=== PATIENT | male | born 1985 | race Caucasian/White ===

== ENCOUNTER 2019-07-10 17:13 | Emergency (ER) | payer SELFPAY ==
[2019-07-10 17:22] VITALS: BP 112/79
[2019-07-10] MEDS: Lidocaine 1% 5ml 10 MG/ML VIAL IJ ONE ×2 (17:32→17:53)
[2019-07-10] MEDS: DIPH,PERTUSS(ACELL),TET VAC/PF 0.5 ML DISP.SYRIN IM ONE (18:07)
--- NOTE | 2019-07-10 18:10 | ED Physician Documentation ---
General Adult - HISTORIAN Historian: patient - HPI Stated Complaint: left thumb lac Chief Complaint: Laceration/Recheck/Suture Additional Information: Patient presents to ED with 3 cm laceration to left thumb. Patient states he c ut his left thumb accidentally while trying to cut a cable tie off of his daughters hair brush. The knife slipped a lacerated the dorsal side of his left thumb. Patient last tetanus was about 6 years. Onset: minutes (20) Timing: still present Severity: moderate - ROS CONST: no problems EYES/ENT: none CVS/RESP: none GI/: none MS/SKIN/LYMPH: none NEURO/PSYCH: denies: headache - PAST HX Past History: none Other History: none Surgeries/Procedures: none Allergies/Adverse Reactions: Allergies Allergy/AdvReac Type Severity Reaction Status Date / Time No Known Allergies Allergy Verified 07/10/19 17:22 Home Medications: Ambulatory Orders Medication Instructions Recorded NK 07/10/19 - SOCIAL HX Smoking History: cigarettes, greater than 1 pack/day Alcohol Use: none Drug Use: none - FAMILY HX Family History: No - VITAL SIGNS Vital Signs: Vital Signs Temp Pulse Resp BP Pulse Ox 98.7 F 98 H 19 112/79 100 07/10/19 17:18 07/10/19 17:18 07/10/19 17:18 07/10/19 17:18 07/10/19 17:18 - REVIEWED ASSESSMENTS Nursing Assessment Reviewed: Yes Vitals Reviewed: Yes Procedures Wound Location: upper extremity (left thumb) Wound's Depth, Shape: superficial, linear Wound Explored: clean Irrigated w/ Saline (ccs): 250 Betadine Prep?: Yes Anesthesia: 1% Lidocaine Volume of Anesthetic: 10 ml Wound Debrided: minimal Wound Repaired With: sutures Suture Size/Type: 4:0 Number of Sutures: 8 Sterile Dressing Applied?: Yes Splint Applied?: No Sling Applied?: No ED Results Lab/Radiology - Orders Orders: ED Orders Category Date Time Status Cleanse with NS and Chlorhexid 1T Care 07/10/19 17:23 Active Diph,Pertuss(Acell),Tet Vac/Pf [Adacel] Med 07/10/19 17:22 Discontinued 0.5 ml IM .ONCE ONE Lidocaine 1% 5ml [Xylocaine] Med 07/10/19 17:22 Discontinued 50 mg IJ NOW ONE Lidocaine 1% 5ml [Xylocaine] Med 07/10/19 17:38 Discontinued 50 mg IJ NOW ONE General Adult Physical Exam - PHYSICAL EXAM GENERAL APPEARANCE: no distress EENT: [place] NECK: normal inspection, supple RESPIRATORY: no resp distress, chest non-tender, breath sounds normal CVS: reg rate & rhythm ABDOMEN: soft, normal bowel sounds BACK: normal inspection SKIN: warm/dry, other (3 cm laceration to dorsal side of left thumb) EXTREMITIES: non-tender, no edema NEURO: oriented X3, motor nml, sensation nml, mood/affect nml Discharge Clincal Impression: Laceration of left thumb Qualifiers: Encounter type: initial encounter Damage to nail status: without damage Foreign body presence: without foreign body Qualified Code(s): S61.012A - Laceration without foreign body of left thumb without damage to nail, initial encounter Referrals: Primary Doctor,No [Primary Care Provider] - 2 Days Additional Instructions: 1. Keep laceration clean and dry. 2. Wash twice daily with antibacterial soap, pat dry with towel 3. No baths, hot tubs, swimming. Showers ok 4. Follow up with PCP in 7-10 day for suture removal 5. Return to ER for new or worsening symptoms Comments: Patient given tetanus vaccine prior to discharge. Condition: Stable Disposition: 01 HOME, SELF-CARE Decision to Admit: NO Date of Decison to Admit: 07/10/19 Decision Time: 18:10
== END 2019-07-10 18:16 | disposition home or self-care (01) ==
LOC: ED 17:13
DX: S61.012A Laceration without foreign body of left thumb without damage to nail, initial encounter (principal); W26.8XXA Contact with other sharp object(s), not elsewhere classified, initial encounter; Y93.89 Activity, other specified
CPT/HCPCS: 12002; 90715; 96372; 99282; 99283